=== PATIENT | female | born 1985 | race Caucasian/White ===

== ENCOUNTER 2016-09-08 19:38 | Emergency (ER) | payer OTHER ==
[~2016-09-08] VITALS: Ht 167.6 cm; Wt 65.0 kg
[2016-09-08 19:42] VITALS: TEMP 36.7; Ht 167.6 cm; Wt 65.0 kg
[2016-09-08] MEDS ORDERED: FLUO10CA48 PO (20:34)
[2016-09-08] MEDS ORDERED: MULT-580 PO (20:34)
[2016-09-08] MEDS ORDERED: VITBC PO (20:34)
[2016-09-08] MEDS ORDERED: LEVO25TA PO (20:34)
--- NOTE | 2016-09-08 20:35 | EMERGENCY ROOM VISIT NOTE ---
History First contact with patient: 19:46 Chief Complaint: NEEDLE STICK Stated Complaint: NEEDLE STICK-WORK COMP History of Present Illness The patient is a 31 year old female who presents to the Emergency Room with complaints of a needlestick to her left hand. The patient is employed at the [employer] on [facility] ([phone]). The patient was administering a Rocephin injection. After withdrawing the needle, and attempting to reach for a Band-Aid, she accidentally stuck her left thumb. The patient immediately cleanse the wound. She was sent here for further evaluation. Source patient is Kamran Conrad, date of [birth year]. Attending physician for this source patient is Dr. Val Colorado. The patient did not advise Dr. Colorado of this injury until after the source patient left the office. Dr. Colorado reports that she will contact the source patient tonight regarding this incident. The source patient does have a return appointment scheduled for tomorrow, and they will order additional baseline source testing. The patient denies any significant pain, paresthesias or numbness of the finger. Tetanus immunization is up-to-date. The patient is [id number]. Review of Systems 10 system review was performed and was negative except for pertinent positives and negatives as indicated in history of present illness Past Medical/Surgical History Medical Problems: (1) No significant past medical history Surgical Problems: (1) History of liposuction (2) History of wisdom tooth extraction Family History FH: cancer FH: diabetes mellitus FH: hypertension Social History Smoking Status: Never Smoker Alcohol Use: occasionally Marital Status: single, in relationship Housing Status: lives with significant other Occupation Status: employed Physical Exam Vital Signs Date Time Temp Pulse Resp B/P Pulse Ox O2 Delivery O2 Flow Rate FiO2 09/08/16 19:42 36.7 89 18 125/87 96 Room Air Physical Exam CONSTITUTIONAL: Healthy and well nourished. Alert and oriented X 3 with positive affect. HEENT: Normocephalic, atraumatic. Pupils equal, round and reactive. NECK: Full active range of motion without discomfort. RESPIRATORY: Clear to auscultation bilaterally with no wheezing, crackles, rhonchi or stridor. CARDIOVASCULAR: Regular rate and rhythm with no murmurs, rubs or gallops. MUSCULOSKELETAL: Examination of the left thumb shows a small puncture wound over the dorsal proximal mid phalanx. Flexion and extension does not worsen her discomfort. No active bleeding, significant ecchymosis or hematoma formation. Capillary refill is less than 2 seconds. INTEGUMENTARY: No rash or other significant dermatologic conditions noted. NEUROLOGIC: Left thumb is sensory intact. Medical Decision & Procedures ED Course Patient history and physical exam were performed. Nurse's notes were reviewed. Vital signs were reviewed and were normal. The patient did not have source patient information. I did call her office and spoke directly with Dr. Colorado who provided this information. I also discussed HIV postexposure prophylaxis with the patient. At this point, she is requesting difference of this prophylaxis until rapid HIV testing can be performed. The patient underwent baseline lab draws as well. The patient did sign an informed consent for baseline HIV testing. Information was also left on [employer] [facility] answer machine. The patient was encouraged to intermittently apply ice, and administer ibuprofen or Tylenol as needed for any pain. The patient was happy with plan of care, and voiced understanding of all discharge instructions. Impression Primary Impression: Needle stick injury of finger of left hand Additional Impression: Work related injury Departure Information Patient Instructions [facility] [employer] Problem Qualifiers Primary Impression: Needle stick injury of finger of left hand Encounter type: initial encounter Qualified Codes: S61.239A - Puncture wound without foreign body of unspecified finger without damage to nail, initial encounter; W27.3XXA - Contact with needle (sewing), initial encounter
[2016-09-08 20:38] VITALS: BP 119/79; PULSE 82; O2SAT 98
[2016-09-09 09:44] LABS: HEPATITIS B AB POS
--- NOTE | 2016-09-09 14:12 | EDITING REQUIRED CODING QUERY ---
CODING QUERY To promote full compliance with coding requirements relating to patient care, provider participation is requested in all cases of physician coder uncertainty. Please assist us with the question(s) below: Coding Question(s): There is conflicting information between information in H&P dicatation and the information in the Problem Qualifiers section. Please clarify below. 1. Please clarify the location of the needlestick injury (X) Left Thumb ( ) Left finger unspecified 2. Please clarify the type of needle that caused the needlestick injury (X) hypodermic needle (X) contaminated ( ) not contaminated ( ) Sewing Needle ( ) Unspecified type of needle Physician's Response(s): Thank you Debra Veliz Principal Diagnosis: "_that condition established after study, to be chiefly responsible for occasioning the admission of the patient to the hospital for care." Co-Existing Principal Diagnosis: "_when two or more diagnoses equally meet the criteria for principal diagnosis as determined by the circumstances of admission, diagnostic work up, and/or therapy provided, and the Alphabetic Index, Tabular List, or another coding guideline does not provide sequencing direction, any one of the diagnoses may be sequenced first." "When the physician has documented what appears to be a current diagnosis in the body of the record, but has not included the diagnosis in the final diagnostic statement, the physician should be asked whether the diagnosis should be added." ([facility] 2 QTR90. p3-4)
== END 2016-09-08 20:38 | disposition home or self-care (01) ==
LOC: C.EDB 19:39 → C.EDD 20:38
DX: S61.032A Puncture wound without foreign body of left thumb without damage to nail, initial encounter (principal); Z83.3 Family history of diabetes mellitus; Z82.49 Family history of ischemic heart disease and other diseases of the circulatory system; W46.1XXA Contact with contaminated hypodermic needle, initial encounter; Y93.F9 Activity, other caregiving; Y92.531 Health care provider office as the place of occurrence of the external cause; Y99.0 Civilian activity done for income or pay

== ENCOUNTER → 2016-11-03 | Outpatient (CLI) | payer OTHER ==
[~2016-11-03] MED LIST: FLUO10CA48 PO; LEVO25TA PO; MULT-580 PO; VITBC PO
== END | disposition home or self-care (01) ==
LOC: C.LAB1850 13:12
PROVIDERS: ATTEND Emergency Medicine
DX: Z77.21 Contact with and (suspected) exposure to potentially hazardous body fluids (principal)

== ENCOUNTER → 2016-12-20 | Outpatient (CLI) | payer OTHER | END | disposition home or self-care (01) | LOC: C.LAB1850 09:20 → EDSTATUS 12-24 11:53 | PROVIDERS: ATTEND Physician Assistant | DX: Z77.21 Contact with and (suspected) exposure to potentially hazardous body fluids (principal); W46.0XXA Contact with hypodermic needle, initial encounter ==

== ENCOUNTER → 2017-03-21 | Outpatient (CLI) | payer OTHER | END | disposition home or self-care (01) | LOC: C.LAB1850 09:47 → EDSTATUS 03-22 12:10 | PROVIDERS: ATTEND Nurse Practitioner Adult Health | DX: T14.90 Injury, unspecified (principal); W46.0XXA Contact with hypodermic needle, initial encounter ==